=== PATIENT | female | born 1995 | race Hispanic/Latino ===

== ENCOUNTER 2017-09-14 15:45 | Emergency (ER) | payer SELFPAY ==
[2017-09-14 16:24] LABS: #Eosinphils 0.1 thou/uL (0.0-0.7); #Lymphocytes 1.5 thou/uL (1.20-3.40); #Monocytes 0.4 thou/uL (0.11-0.59); #Neutrophils 7.3 thou/uL (1.40-6.50); %Basophils 0.1 % (0.0-1.0); %Eosinophils 0.7 % (0.0-10.0); %Lymphocytes 16.2 % (21.0-51.0); %Monocytes 4.5 % (0.0-10.0); %Neutrophils 78.5 % (42.0-75.0); Hemoglobin 14.8 g/dL (12.0-16.0); Mean Corpuscular HGB CONC 33.4 g/dL (32.0-36.0); Mean Corpuscular Hemoglobin 31.8 pg (27.0-31.0); Mean Corpuscular Volume 95.3 fl (81.0-99.0); Mean Platelet Volume 7.3 fL (7.4-10.4); Platelet Count 342 thou/uL (130-400); RBC Distribution Width 11.9 % (11.5-14.5); Red Blood Cell (RBC) Count 4.66 mill/uL (4.20-5.40); White Blood Cell (WBC) Count 9.3 thou/uL (4.8-10.8)
[2017-09-14 16:53] LABS: ALT (SGPT) 18 U/L (8-55); AST (SGOT) 18 U/L (5-34); Albumin 4.4 g/dL (3.5-5.0); Alkaline Phosphatase 92 U/L (40-150); Anion Gap 12 mmol/L (10-20); BUN (Urea Nitrogen) 12 mg/dL (7.0-18.7); Bilirubin, Total 0.4 mg/dL (0.2-1.2); CRP (Inflammatory) Less than 0.50 mg/dL (= or < 0.5); Calc. Creatinine Clearance 0 mL/min (70-130); Calcium 9.5 mg/dL (7.8-10.44); Carbon Dioxide 26 mmol/L (22-29); Chloride 103 mmol/L (98-107); Estimated GFR-MDRD Greater than 90; Globulin 2.7 g/dL (2.4-3.5); Glucose 105 mg/dL (70-105); Potassium 3.7 mmol/L (3.5-5.1); Protein, Total 7.1 g/dL (6.0-8.3); Sodium 137 mmol/L (136-145)
[2017-09-14] MEDS ORDERED: Ketorolac Tromethamine 30 MG/ML VIAL ONE (17:01)
[2017-09-14] MEDS ORDERED: Metoclopramide HCl 10 MG/2 ML VIAL ONE (17:01)
[2017-09-14] MEDS ORDERED: diphenhydrAMINE 50 MG/ML VIAL ONE (17:01)
[2017-09-14] MEDS ORDERED: Water For Inject, Bacteriostat 30 ML ONE (17:54)
[2017-09-14] MEDS ORDERED: methylPREDNISolone Sod Succ/PF 125 MG/2 ML VIAL ONE (17:54)
[2017-09-14] MEDS ORDERED: Magnesium Sulfate 2 GM/100 ML BAG ONE (17:55)
== END 2017-09-14 19:08 | disposition home or self-care (01) ==
LOC: ERS 15:45
DX: G43.909 Migraine, unspecified, not intractable, without status migrainosus (principal)
CPT/HCPCS: 36415; 80053; 85025; 86140; 96365; 96367; 96375; J1200; J1885; J2765; J2930; J3475

== ENCOUNTER 2018-08-16 20:13 | Emergency (ER) | payer SELFPAY ==
[2018-08-16 20:38] LABS: #Eosinphils 0.1 thou/uL (0.0-0.7); #Monocytes 0.6 thou/uL (0.11-0.59); #Neutrophils 4.1 thou/uL (1.40-6.50); %Basophils 0.7 % (0.0-1.0); %Eosinophils 1.6 % (0.0-10.0); %Lymphocytes 28.8 % (21.0-51.0); %Monocytes 8.2 % (0.0-10.0); %Neutrophils 60.6 % (42.0-75.0); Hemoglobin 13.7 g/dL (12.0-16.0); Mean Corpuscular HGB CONC 35.2 g/dL (32.0-36.0); Mean Corpuscular Hemoglobin 32.7 pg (27.0-31.0); Platelet Count 300 thou/uL (130-400); RBC Distribution Width 11.9 % (11.5-14.5); White Blood Cell (WBC) Count 6.8 thou/uL (4.8-10.8)
[2018-08-16 20:48] LABS: Bilirubin Negative (Negative); Blood, Urine Negative (Negative); Glucose, Urine (Dipstick) Negative (Negative); Leukocyte Negative (Negative); Nitrite Negative (Negative); Protein, Urine (Dipstick) Negative (Neg-Trace); Urobilinogen 0.2 mg/dL (0.2-1.0)
[2018-08-16 20:49] LABS: Clarity Clear (Clear); Pregnancy Test - Urine (BHCG) Negative (Negative); Pregu Control Background? CLEAR/WHITE (CLR/WHITE); Pregu Control Bar Appear? YES (CONTROL BAR)
[2018-08-16 20:59] LABS: ALT (SGPT) 13 U/L (8-55); AST (SGOT) 14 U/L (5-34); Albumin 3.9 g/dL (3.5-5.0); Alkaline Phosphatase 92 U/L (40-150); Anion Gap 11 mmol/L (10-20); BUN (Urea Nitrogen) 10 mg/dL (7.0-18.7); Bilirubin, Total 0.3 mg/dL (0.2-1.2); Calc. Creatinine Clearance 0 mL/min (70-130); Carbon Dioxide 26 mmol/L (22-29); Chloride 107 mmol/L (98-107); Estimated GFR-MDRD Greater than 90; Globulin 2.7 g/dL (2.4-3.5); Glucose 76 mg/dL (70-105); Potassium 3.5 mmol/L (3.5-5.1); Protein, Total 6.6 g/dL (6.0-8.3); Sodium 140 mmol/L (136-145)
[2018-08-16] MEDS ORDERED: Pantoprazole 40 MG VIAL ONE (22:23)
[2018-08-16] MEDS ORDERED: Ondansetron ODT 4 MG TAB ONE (22:23)
--- NOTE | 2018-08-16 22:42 | ULT ---
GALLBLADDER ULTRASOUND: 08/16/18 HISTORY: Right upper quadrant pain. Real time imaging of the right upper quadrant demonstrates a normal appearing gallbladder. The common duct is 4 to 5 mm. The visualized liver parenchyma shows no focal findings. The right kidney is normal in size and not obstructed. The pancreas region is normal in appearance. Technologist reports a negative ultrasound Hernandez's sign. IMPRESSION: Unremarkable gallbladder ultrasound. POS: [facility]
== END 2018-08-16 22:29 | disposition home or self-care (01) ==
LOC: ERS 20:13
DX: R10.13 Epigastric pain (principal)
CPT/HCPCS: 36415; 76705; 80053; 81003; 81025; 85025; 93005; 96374; C9113; Q0162

== ENCOUNTER 2018-09-11 08:39 | Emergency (ER) | payer MEDICAID, SELFPAY ==
[2018-09-11 09:08] LABS: #Basophils 0.1 thou/uL (0.0-0.2); #Eosinphils 0.1 thou/uL (0.0-0.7); #Lymphocytes 1.3 thou/uL (1.20-3.40); #Monocytes 0.3 thou/uL (0.11-0.59); #Neutrophils 3.9 thou/uL (1.40-6.50); %Basophils 0.9 % (0.0-1.0); %Eosinophils 1.5 % (0.0-10.0); %Lymphocytes 22.6 % (21.0-51.0); %Monocytes 5.8 % (0.0-10.0); %Neutrophils 69.2 % (42.0-75.0); Hemoglobin 13.4 g/dL (12.0-16.0); Mean Corpuscular HGB CONC 33.5 g/dL (32.0-36.0); Mean Corpuscular Volume 92.7 fL (78.0-98.0); Mean Platelet Volume 7.5 fL (7.4-10.4); Platelet Count 292 thou/uL (130-400); Red Blood Cell (RBC) Count 4.31 mill/uL (4.20-5.40); White Blood Cell (WBC) Count 5.7 thou/uL (4.8-10.8)
[2018-09-11 09:23] LABS: Bilirubin Negative (Negative); Blood, Urine Large (Negative); Clarity CLEAR (Clear); Glucose, Urine (Dipstick) Negative (Negative); Leukocyte Negative (Negative); Nitrite Negative (Negative); Protein, Urine (Dipstick) Negative (Neg-Trace); Specific Gravity, Urine 1.004 (1.002-1.036); Urobilinogen 0.2 mg/dL (0.2-1.0); pH, Urine 6.5 (5.0-9.0)
[2018-09-11 09:26] LABS: Bacteria/HPF None Seen HPF (None Seen); Hyaline Casts/LPF 0-3 HYALINE CAST LPF (0-3 Hyaline); Pathc Cast-AUWi Flag 0.29 (0-2.49); Squamous Epithelial 0-3 HPF (0-3); WBC/HPF None Seen HPF (0-3)
--- NOTE | 2018-09-11 12:57 | ULT ---
TRANSABDOMINAL AND TRANSVAGINAL OBSTETRICAL SONOGRAM WITH DUPLEX EVALUATION: HISTORY: Pelvic pain and bleeding. FINDINGS: The urinary bladder is unremarkable. The uterus measures up to 9.8 cm. The gestational sac, at the level of the fundus, contains a tiny yolk sac and pole. Heart motion at 99 beats per minute. Measurements correlate with 6 weeks' 2 days' gestational size. The right ovary is 2.7 cm and the left is 2.2 cm. Each has a normal appearance and demonstrates good color and spectral Doppler flow. IMPRESSION: Single viable intrauterine gestation with an estimated gestational age, based on today's sonogram, of 6 weeks 2 days. POS: [facility]
== END 2018-09-11 11:49 | disposition home or self-care (01) ==
LOC: ERS 08:39
DX: O20.0 Threatened abortion (principal); Z3A.01 Less than 8 weeks gestation of pregnancy
CPT/HCPCS: 36415; 76856; 81003; 81015; 84702; 85025; 86900; 86901

== ENCOUNTER 2018-12-17 08:48 | Outpatient (CLI) | payer MEDICAID ==
--- NOTE | 2018-12-17 09:52 | ULT ---
EXAM: OB ultrasound COMPARISON: None available. HISTORY: Intrauterine gestation. Evaluate anatomy. TECHNIQUE: Multiplanar grayscale and color Doppler transabdominal sonographic images are obtained. FINDINGS: There is a single intrauterine gestation in cephalic presentation. Cardiac Doppler demonstr ates heart tones with a heart rate of 144 beats per minute. The placenta is located in the fundus with the placenta seen anteriorly as well as posteriorly without evidence of placenta prev ia. There is a normal amount of amniotic fluid with an amniotic fluid index of 12.27 centimeters. The cervical length based on transabdominal imaging measures 4.1 centimeters. biometry measurements: BPD 4.55 cm -- 19 weeks 6 days HC 17.32 cm -- 20 weeks AC 15.37 cm -- 20 weeks 4 days FL 3.17 cm -- 19 weeks 6 days The estimated gestational age by ultrasound is 20 weeks 1 day with an ZANE on05/05/2019. Gestational age by the last menstrual period is 20 weeks 4 days. The estimated weight by ultrasound is 338 g (12 ounces). This represents 26th percentile for fe ena weight. A 4 chambered heart is visualized. The cerebellum, visualized portions of the spine, kidneys, u rinary bladder, and cord insertion demonstrate a normal sonographic appearance. A three-vessel cord is not visualized, but there is flow on either side of the urinary bladder sugges ting a three-vessel cord.. No anomalies are seen. IMPRESSION: 1. Single intrauterine gestation in cephalic presentation with heart tones documented. Estimat ed gestational age by ultrasound is 20 weeks 1 day. 2. Estimated weight is 338 g (12 ounces). 3. Amniotic fluid index is 12.27 centimeters.
== END 2018-12-17 08:49 | disposition home or self-care (01) ==
LOC: BICULT 08:48
PROVIDERS: ATTEND Family Medicine
DX: Z34.82 Encounter for supervision of other normal pregnancy, second trimester (principal); Z3A.20 20 weeks gestation of pregnancy
CPT/HCPCS: 76805

== ENCOUNTER 2019-03-17 21:39 | Inpatient (IN) | payer OTHER ==
[2019-03-17 22:11] VITALS: BMI 28.7
[2019-03-17] MEDS ORDERED: NIFEdipine 10 MG CAP ONE (22:27)
[2019-03-17] MEDS ORDERED: Betamet Acet/Betamet Na Ph 30 MG/5 ML VIAL ONE (22:27)
[2019-03-17] MEDS ORDERED: Ondansetron PF 4 MG/2 ML Vial IVP PRN (22:41)
[2019-03-17] MEDS ORDERED: Butorphanol Tartrate 1 MG/ML VIAL SLOW IVP PRN (22:41)
[2019-03-17] MEDS ORDERED: Lidocaine 1% (PF) 30 ML VIAL SC PRN (22:41)
[2019-03-17] MEDS ORDERED: Lactated Ringer's 1,000 ML IV SCH ×2 (22:41→22:45)
[2019-03-17] MEDS ORDERED: hydrALAZINE 20 MG/ML VIAL SLOW IVP PRN (22:41)
[2019-03-17] MEDS ORDERED: NS / Oxytocin 40 units/1000ml 1,000 ML IV PRN (22:41)
[2019-03-17] MEDS ORDERED: Promethazine HCl 25 MG/ML VIAL IM PRN (22:41)
[2019-03-17] MEDS ORDERED: NIFEdipine 10 MG CAP PO PRN (22:53)
--- NOTE | 2019-03-17 22:58 | HP ---
TIME OF SERVICE: 2225 hours. PRESENTING COMPLAINT: Contractions at 34 weeks' gestation. HISTORY OF PRESENT ILLNESS: Ms. Farmer is a 24-year-old, 3, para 2, at 34 weeks and 0 days by stated ZANE. Antepartum records not available on the unit. She has received her antepartum care by Dr. Mykel Vieyra at [facility]. She reports contractions for the last 3 days, worse this evening. She denies rupture of membranes or change in vaginal discharge. She reports active fetus. TAKE AWAY MAN HISTORY: x2 at term, largest 8 pounds. Blood type is O positive, antibody negative. Rest of record not available. PAST MEDICAL HISTORY: None. PAST SURGICAL HISTORY: None. ALLERGIES: DENIES. MEDICATIONS: vitamins. SOCIAL HISTORY: Denies tobacco, alcohol, or IV drug use. FAMILY HISTORY: Noncontributory. REVIEW OF SYSTEMS: Noncontributory. PHYSICAL EXAMINATION: GENERAL: female, resting comfortably, but in pain with contractions. VITAL SIGNS: Temperature 98.2, respirations 18, blood pressure 122/72. HEENT: Within normal limits. LUNGS: Clear to auscultation bilaterally. HEART: Regular rate and rhythm. ABDOMEN: Soft with palpable indentable contractions. Fundus is 34 cm. FHT is 130s. : Vulva without lesions. Vagina without discharge. Cervix; 175, cephalic, -2, posterior ballots with ease, soft cervix. EXTREMITIES: Without clubbing, cyanosis, or edema. heart rate monitoring revealed contractions every 3 to 6 minutes with a category 1 heart rate tracing. IMPRESSION: Cervical dilatation with contractions, worrisome for early labor at 34 weeks and 0 days. PLAN: 1. Admission. 2. corticosteroids. 3. Procardia. 4. IV hydration. 5. Reassess after 4 to 8 hours of IV therapy and treatment. We will re-examine cervix if the patient's contractions increase. Job ID: [id number]
[2019-03-17] MEDS ORDERED: NIFEdipine 10 MG CAP PO SCH ×3 (23:00→23:30)
[2019-03-17] MEDS ORDERED: Betamet Acet/Betamet Na Ph 30 MG/5 ML VIAL IM SCH (23:00)
[2019-03-17 23:26] LABS: Hemoglobin 12.8 g/dL (12.0-16.0); Mean Corpuscular HGB CONC 34.2 g/dL (32.0-36.0); Mean Corpuscular Hemoglobin 32.7 pg (27.0-31.0); Mean Corpuscular Volume 95.6 fL (78.0-98.0); Mean Platelet Volume 7.7 fL (7.4-10.4); Platelet Count 305 thou/uL (130-400); RBC Distribution Width 12.1 % (11.5-14.5); Red Blood Cell (RBC) Count 3.92 mill/uL (4.20-5.40); White Blood Cell (WBC) Count 7.3 thou/uL (4.8-10.8)
[2019-03-17 23:29] LABS: Bacteria/HPF 2+ HPF (None Seen); Bilirubin Negative (Negative); Blood, Urine 1+ (Negative); Clarity Clear (Clear); Glucose, Urine (Dipstick) Normal (Negative); Leukocyte 500 Leu/uL (Negative); Nitrite Negative (Negative); Protein, Urine (Dipstick) 70 mg/dL (Neg-Trace); RBC/HPF 0-3 HPF (0-3); Squamous Epithelial 0-3 HPF (0-3); Urobilinogen Normal mg/dL (Less than 2)
[2019-03-17 23:36] LABS: Amphetamine Not Detected (NotDetected); Barbiturates Screen Not Detected (NotDetected); Benzodiazepine Screen Not Detected (NotDetected); Cocaine Metabolite Screen Not Detected (NotDetected); Medtox Control Line Valid? VALID (VALID); Medtox Reader # READER 4; Methadone Not Detected (NotDetected); Methamphetamine Not Detected (NotDetected); Opiate Screen Not Detected (NotDetected); Oxycodone Screen Not Detected (NotDetected); Phencyclidine (PCP) Not Detected (NotDetected); THC/Cannabinoid Screen Not Detected (NotDetected); Tricyclic Screen Not Detected (NotDetected)
[2019-03-18 00:03] LABS: Syphilis Antibody Nonreactive (Nonreactive); Syphilis Antibody Index 0.05 S/CO (<1.00 Non-Reactive)
[2019-03-18] MEDS: cefTRIAXone\\ROCEPHIN 2 GM in Sodium Chloride 0.9% 100 ML IVPB SCH (01:22)
[2019-03-18] MEDS: Sodium Chloride 0.9% 1,000 ML IV SCH ×3 (01:22→17:40)
[2019-03-18 01:47] LABS: HBSAg Index 0.37 S/CO (0-0.99); HIV (1/2) Antibody/Antigen Non-Reactive (NonReactive); HIV 1/2 INDEX 0.08 S/CO (<1.00); Hep B Surf Ag Non-Reactive S/CO (NonReactive)
[2019-03-19] MEDS: cefTRIAXone\\ROCEPHIN 2 GM in Sodium Chloride 0.9% 100 ML IVPB SCH (01:23)
[2019-03-19] MEDS: Sodium Chloride 0.9% 1,000 ML IV SCH (01:24)
[2019-03-19 05:56] VITALS: BP 101/58; TEMP 98.4
== END 2019-03-19 07:58 | disposition home health service (06) | DRG 833 ==
LOC: L&D/OP 21:39 → L&D 22:52
PROVIDERS: ADMIT Family Medicine; ATTEND Family Medicine
PROC: 4A1HXCZ Monitoring of Products of Conception, Cardiac Rate, External Approach (ICD-10-PCS; principal; 2019-03-18)
DX: O60.03 Preterm labor without delivery, third trimester (principal); O62.0 Primary inadequate contractions; Z3A.34 34 weeks gestation of pregnancy
CPT/HCPCS: 36415; 80306; 81001; 85027; 86780; 86850; 86900; 86901; 87086; 87340; 87389; 99285; J0696; J0702; J3490

== ENCOUNTER 2019-04-24 09:10 | Inpatient (IN) | payer OTHER ==
[2019-04-24 09:34] VITALS: BMI 29.2
[2019-04-24] MEDS ORDERED: Ibuprofen 800 MG TAB PO PRN (10:28)
[2019-04-24] MEDS ORDERED: Misoprostol 200 MCG TAB PR PRN (10:28)
[2019-04-24] MEDS ORDERED: NS / Oxytocin 40 units/1000ml 1,000 ML IV PRN (10:28)
[2019-04-24] MEDS ORDERED: HYDROcodone/Acetaminophen 5/325 mg Tablet PO PRN ×3 (10:28→15:05)
[2019-04-24] MEDS ORDERED: Promethazine HCl 25 MG/ML VIAL IM PRN ×3 (10:28→15:05)
[2019-04-24] MEDS ORDERED: Carboprost 250 MCG/ML AMP IM PRN (10:28)
[2019-04-24] MEDS ORDERED: Methylergonovine 0.2 MG/ML VIAL IM PRN (10:28)
[2019-04-24] MEDS ORDERED: Ondansetron PF 4 MG/2 ML Vial IVP PRN ×3 (10:28→15:05)
[2019-04-24] MEDS ORDERED: Lidocaine 1% (PF) 30 ML VIAL SC PRN (10:28)
[2019-04-24] MEDS ORDERED: Diphenoxylate HCl/Atropine Tablet PO PRN (10:28)
[2019-04-24] MEDS ORDERED: hydrALAZINE 20 MG/ML VIAL SLOW IVP PRN ×2 (10:28→15:05)
[2019-04-24] MEDS ORDERED: Butorphanol Tartrate 1 MG/ML VIAL SLOW IVP PRN (10:28)
[2019-04-24] MEDS ORDERED: Penicillin G 2.5 MILL.units 2.5 MILL.UNITS in Premix Bag 1 BAG IVPB SCH (10:30)
[2019-04-24] MEDS ORDERED: Penicillin G Potassium 5 MILL.UNITS in Sodium Chloride 0.9% 100 ML IVPB SCH (10:30)
[2019-04-24] MEDS: Lactated Ringer's 1,000 ML IV SCH ×2 (10:30→12:30)
[2019-04-24] MEDS ORDERED: NS w/ Oxytocin 10 units 500 ML IV SCH ×2 (10:30)
[2019-04-24] MEDS ORDERED: NS w/ Oxytocin 10 units 500 ML ONE (10:33)
[2019-04-24] MEDS ORDERED: Penicillin G Potassium 5 MILL.UNITS VIAL ONE (10:33)
[2019-04-24 11:12] LABS: Hemoglobin 12.4 g/dL (12.0-16.0); Mean Corpuscular HGB CONC 35.1 g/dL (32.0-36.0); Mean Corpuscular Hemoglobin 32.3 pg (27.0-31.0); Mean Corpuscular Volume 91.9 fL (78.0-98.0); Platelet Count 326 thou/uL (130-400); Red Blood Cell (RBC) Count 3.83 mill/uL (4.20-5.40); White Blood Cell (WBC) Count 5.6 thou/uL (4.8-10.8)
[2019-04-24] MEDS ORDERED: Fentanyl 4 mcg/Bup 0.1% Cadd 100 ML ONE (11:39)
[2019-04-24 11:52] LABS: Syphilis Antibody Nonreactive (Nonreactive); Syphilis Antibody Index 0.06 S/CO (<1.00 Non-Reactive)
[2019-04-24 11:53] LABS: HBSAg Index 0.18 S/CO (0-0.99); Hep B Surf Ag Non-Reactive S/CO (NonReactive)
[2019-04-24] MEDS ORDERED: Lactated Ringer's 500 ML IV PRN (13:07)
[2019-04-24] MEDS ORDERED: diphenhydrAMINE 50 MG/ML VIAL IVP PRN (13:07)
[2019-04-24] MEDS ORDERED: Naloxone HCl 0.4 mg/ml Vial IVP PRN ×2 (13:07)
[2019-04-24] MEDS ORDERED: Acetaminophen 325 MG TAB PO PRN (13:07)
[2019-04-24] MEDS ORDERED: ePHEDrine/0.9% NaCl/PF SYRINGE 50 mg/10 ml SLOW IVP PRN (13:07)
[2019-04-24] MEDS ORDERED: Communication Order-Pharmacy FS SCH (13:15)
[2019-04-24] MEDS ORDERED: Fentanyl 4 mcg/Bupivacaine 0.1% Cassette 100 ML EPIDURAL SCH (13:15)
[2019-04-24] MEDS ORDERED: diphenhydrAMINE 25 MG CAP PO PRN (15:05)
[2019-04-24] MEDS ORDERED: NS / Oxytocin 40 units/1000ml 1,000 ML IV SCH (15:05)
[2019-04-24] MEDS ORDERED: Benzocaine-Menthol 82.5 ML CAN TOP PRN (15:05)
[2019-04-24] MEDS ORDERED: Milk Of Magnesia 30 ML UDCUP PO PRN (15:05)
[2019-04-24] MEDS ORDERED: Lanolin Ointment 7 GM TUBE TOP PRN (15:05)
[2019-04-24] MEDS ORDERED: Bisacodyl 10 MG SUPP PR PRN (15:05)
[2019-04-24] MEDS ORDERED: NS / Oxytocin 40 units/1000ml 1,000 ML ONE (15:38)
[2019-04-24] MEDS: Ferrous Sulfate 325 MG TAB PO SCH (16:52)
[2019-04-24] MEDS ORDERED: Bupivacaine 0.25% HCL 30 ML VIAL ONE (17:36)
[2019-04-24] MEDS: Ibuprofen 800 MG TAB PO SCH (21:21)
[2019-04-24] MEDS: Docusate Calcium (SURFAK) 240 MG CAP PO SCH (21:21)
[2019-04-25 04:28] LABS: Hemoglobin 11.2 g/dL (12.0-16.0); Mean Corpuscular HGB CONC 34.9 g/dL (32.0-36.0); Mean Corpuscular Hemoglobin 32.3 pg (27.0-31.0); Mean Corpuscular Volume 92.4 fL (78.0-98.0); Mean Platelet Volume 7.6 fL (7.4-10.4); Platelet Count 262 thou/uL (130-400); RBC Distribution Width 11.8 % (11.5-14.5); Red Blood Cell (RBC) Count 3.48 mill/uL (4.20-5.40); White Blood Cell (WBC) Count 7.6 thou/uL (4.8-10.8)
[2019-04-25] MEDS: Ibuprofen 800 MG TAB PO SCH ×3 (06:12→21:20)
[2019-04-25] MEDS: Ferrous Sulfate 325 MG TAB PO SCH ×2 (08:11→16:10)
[2019-04-25] MEDS: Prenatal Vitamin 1 TAB PO SCH (08:11)
[2019-04-25] MEDS: Docusate Calcium (SURFAK) 240 MG CAP PO SCH ×2 (08:12→21:20)
[2019-04-25] MEDS ORDERED: Adacel (T-DAP) 0.5 ML SYRINGE IM ONE (09:00)
[2019-04-26] MEDS: Ibuprofen 800 MG TAB PO SCH ×2 (05:59→13:59)
[2019-04-26] MEDS: Prenatal Vitamin 1 TAB PO SCH (09:51)
[2019-04-26] MEDS: Docusate Calcium (SURFAK) 240 MG CAP PO SCH (09:51)
[2019-04-26] MEDS: Ferrous Sulfate 325 MG TAB PO SCH (09:52)
[2019-04-26 13:22] VITALS: BP 130/85; TEMP 97
== END 2019-04-26 16:15 | disposition home or self-care (01) | DRG 807 ==
LOC: L&D/OP 09:10 → L&D 11:29 → 3SW 15:49
PROVIDERS: ADMIT Family Medicine; ATTEND Family Medicine
PROC: 10E0XZZ Delivery of Products of Conception, External Approach (ICD-10-PCS; principal; 2019-04-24)
DX: O42.92 Full-term premature rupture of membranes, unspecified as to length of time between rupture and onset of labor (principal); Z37.0 Single live birth; O99.824 Streptococcus B carrier state complicating childbirth; Z3A.38 38 weeks gestation of pregnancy
CPT/HCPCS: 36415; 85027; 86780; 86850; 86900; 86901; 87340; 99285; J2540; J2590; S0020

== ENCOUNTER 2020-11-01 08:41 | Emergency (ER) | payer OTHER, SELFPAY ==
[2020-11-01 09:40] LABS: #Basophils 0.1 thou/uL (0.0-0.2); #Eosinphils 0.1 thou/uL (0.0-0.7); #Lymphocytes 1.3 thou/uL (1.20-3.40); #Monocytes 0.3 thou/uL (0.11-0.59); #Neutrophils 3.2 thou/uL (1.40-6.50); %Basophils 1.1 % (0.0-1.0); %Eosinophils 1.7 % (0.0-10.0); %Lymphocytes 26.3 % (21.0-51.0); %Monocytes 6.7 % (0.0-10.0); %Neutrophils 64.2 % (42.0-75.0); Hemoglobin 15.1 g/dL (12.0-16.0); Mean Corpuscular HGB CONC 34.5 g/dL (32.0-36.0); Mean Corpuscular Hemoglobin 32.8 pg (27.0-31.0); Mean Corpuscular Volume 95.1 fL (78.0-98.0); Mean Platelet Volume 7.8 fL (7.4-10.4); Platelet Count 317 thou/uL (130-400); RBC Distribution Width 12.1 % (11.5-14.5); White Blood Cell (WBC) Count 4.9 thou/uL (4.8-10.8)
[2020-11-01 10:01] LABS: ALT (SGPT) 13 U/L (8-55); AST (SGOT) 14 U/L (5-34); Albumin 4.2 g/dL (3.5-5.0); Alkaline Phosphatase 95 U/L (40-110); Anion Gap 11 mmol/L (10-20); BUN (Urea Nitrogen) 10 mg/dL (7.0-18.7); Bilirubin, Total 0.5 mg/dL (0.2-1.2); Calc. Creatinine Clearance 0 mL/min (70-130); Calcium 8.8 mg/dL (7.8-10.44); Carbon Dioxide 24 mmol/L (22-29); Chloride 106 mmol/L (98-107); Globulin 2.7 g/dL (2.4-3.5); Glucose 103 mg/dL (70-105); Potassium 4.1 mmol/L (3.5-5.1); Protein, Total 6.9 g/dL (6.0-8.3); Sodium 137 mmol/L (136-145)
[2020-11-01 10:02] LABS: BHCG - Serum Negative (NEGATIVE); Pregs Control Background? CLEAR/WHITE (CLR/WHITE); Pregs Control Bar Appear? YES (CONTROL BAR)
== END 2020-11-01 11:30 | disposition home or self-care (01) ==
LOC: ERS 08:41
DX: R07.89 Other chest pain (principal)
CPT/HCPCS: 36415; 71045; 80053; 84484; 84703; 85025; 93005

== ENCOUNTER 2022-04-15 11:39 | Emergency (ER) | payer SELFPAY ==
[2022-04-15] MEDS ORDERED: Cyclobenzaprine 10 MG TAB ONE (12:12)
== END 2022-04-15 13:29 | disposition home or self-care (01) ==
LOC: ERS 11:39
DX: M25.511 Pain in right shoulder (principal); M54.6 Pain in thoracic spine

== ENCOUNTER 2022-06-15 21:40 | Emergency (ER) | payer SELFPAY ==
[2022-06-15] MEDS ORDERED: Lidocaine 2% PF 5 ML VIAL ONE (22:26)
[2022-06-15] MEDS ORDERED: Boostrix 0.5 ML (Tdap) VIAL (>/=7 yrs of age) ONE (22:41)
[2022-06-15] MEDS ORDERED: Triple Antibiotic Oint 1 GM Packet ONE (22:41)
== END 2022-06-15 23:09 | disposition home or self-care (01) ==
LOC: ERS 21:40
DX: S61.512A Laceration without foreign body of left wrist, initial encounter (principal); W29.0XXA Contact with powered kitchen appliance, initial encounter; Z23 Encounter for immunization
CPT/HCPCS: 12001; 90471; 90715; J2001

== ENCOUNTER 2023-02-28 19:52 | Emergency (ER) | payer SELFPAY ==
[2023-02-28] MEDS ORDERED: Metoclopramide HCl 10 MG/2 ML VIAL ONE (20:25)
[2023-02-28] MEDS ORDERED: diphenhydrAMINE 50 MG/ML VIAL ONE (20:25)
[2023-02-28 20:40] LABS: #Eosinphils 0.1 thou/uL (0.0-0.7); #Monocytes 0.5 thou/uL (0.11-0.59); #Neutrophils 6.2 thou/uL (1.40-6.50); %Basophils 0.2 % (0.0-1.0); %Eosinophils 1.4 % (0.0-10.0); %Monocytes 5.7 % (0.0-10.0); %Neutrophils 72.5 % (42.0-75.0); Hemoglobin 12.9 g/dL (12.0-16.0); Mean Corpuscular HGB CONC 34.3 g/dL (32.0-36.0); Mean Corpuscular Hemoglobin 32.1 pg (27.0-31.0); Mean Corpuscular Volume 93.5 fl (78.0-98.0); Platelet Count 289 10x3/uL (130-400); RBC Distribution Width 13.2 % (11.5-14.5); Red Blood Cell (RBC) Count 4.02 mill/uL (4.20-5.40); White Blood Cell (WBC) Count 8.5 10x3/uL (4.8-10.8)
[2023-02-28 21:03] LABS: ALT (SGPT) 9 U/L (8-55); AST (SGOT) 11 U/L (5-34); Albumin 3.6 g/dL (3.5-5.0); Alkaline Phosphatase 67 U/L (40-110); Anion Gap 14 mmol/L (10-20); BUN (Urea Nitrogen) 6 mg/dL (7.0-18.7); Bilirubin, Total Less than 0.2 mg/dL (0.2-1.2); Calc. Creatinine Clearance 0 mL/min (70-130); Calcium 8.9 mg/dL (7.8-10.44); Carbon Dioxide 20 mmol/L (22-29); Chloride 106 mmol/L (98-107); Estimated GFR 123; Globulin 2.8 g/dL (2.4-3.5); Glucose 88 mg/dL (70-105); Potassium 3.6 mmol/L (3.5-5.1); Protein, Total 6.4 g/dL (6.0-8.3); Sodium 136 mmol/L (136-145)
[2023-02-28] MEDS ORDERED: Acetaminophen 500 MG TAB ONE (22:24)
== END 2023-02-28 23:12 | disposition home or self-care (01) ==
LOC: ERS 19:52
DX: R51.9 Headache, unspecified (principal)
CPT/HCPCS: 36415; 80053; 85025; 96365; 96366; 96375; J1200; J2765

== ENCOUNTER 2025-07-14 14:17 | Outpatient (CLI) | payer OTHER | END 2025-07-14 14:18 | disposition home or self-care (01) | LOC: ULT 14:17 | PROVIDERS: ATTEND Family Medicine | DX: Z34.82 Encounter for supervision of other normal pregnancy, second trimester (principal); Z3A.24 24 weeks gestation of pregnancy | CPT/HCPCS: 76805 ==